=== PATIENT | male | born 1960 | race Caucasian/White ===

== ENCOUNTER 2018-01-25 22:32 | Emergency (ER) | payer BC ==
[2018-01-25] MEDS ORDERED: TETANUS & DIPHTHERIA TOX,ADULT 0.5 ML VIAL ONE (23:16)
[2018-01-25] MEDS ORDERED: LIDOCAINE 1% 20 ML MDV ONE (23:16)
[2018-01-25] MEDS ORDERED: NA CHLORIDE 0.9% 1,000 ML ONE (23:17)
[2018-01-26 01:14] LABS: Absolute Monocytes 0.7 K/uL (0.1-1.3); Absolute Neutrophil 10.3 K/uL (1.8-8.0); Basophils % 0.2 % (0-1.3); Eosinophils % 0.9 % (0-4.4); Hematocrit 34.3 % (39.6-49.0); Lymphocytes % 8.2 % (15.3-44.8); MCH 31.3 pg (27.0-35.0); MCV 88.1 fL (80-100); MPV 8.5 fL (7.6-11.3); RBC Red Blood Cell Count 3.89 M/uL (4.33-5.43)
[2018-01-26 01:17] LABS: Bicarbonate 24 mEq/L (21-31); Glucose Level 134 mg/dL (65-120); Potassium 3.6 mEq/L (3.6-5.0); Sodium Level 138 mEq/L (135-145)
[2018-01-26 01:18] LABS: BUN Blood Urea Nitrogen 13 mg/dL (6-20)
--- NOTE | 2018-01-26 01:20 | ER ---
Nurse's Notes [facility] Name: Edin Gallo Age: 57 yrs Sex: Male : 1960 Arrival Date: 01/25/2018 Time: 22:40 Bed 18 Private MD: Diagnosis: Superficial laceration of left lower leg;Contusion of chest wall Presentation: 01/25 22:50 Presenting complaint: Patient states: Pt reports he had fallen off the [place] at the [facility], hit his right side and scraped his shins. Care prior to arrival: None. Mechanism of Injury: Fall from standing position. Trauma event details: Injury occurred in the [facility], Injury occurred: [place] Injury occurred: January 25, 2018 Injury occurred at: 22:00. 22:50 Acuity: PAO 3 ea 22:50 Method Of Arrival: Wheelchair ea 23:09 Transition of care: patient was not received from another setting of care. Onset of ea symptoms was January 25, 2018. Risk Assessment: Do you want to hurt yourself or someone else? Patient reports no desire to harm self or others. Initial Sepsis Screen: Does the patient meet any 2 criteria? No. Patient's initial sepsis screen is negative. Does the patient have a suspected source of infection? No. Patient's initial sepsis screen is negative. Triage Assessment: 22:40 Respiratory: Reports shortness of breath Airway is patent Respiratory effort is even, ea unlabored, Respiratory pattern is regular, symmetrical, Breath sounds are clear bilaterally. Onset: The symptoms/episode began/occurred after fall, the patient has mild shortness of breath. 23:07 General: Appears uncomfortable. General: Behavior is calm, cooperative. ea Historical: - Allergies: 23:07 No Known Allergies; ea - Home Meds: 23:07 Lyrica Oral [Active]; Baclofen Oral [Active]; Motrin Oral [Active]; [place] Oral [Active];ea - PSHx: 23:07 c2 to c7 surgery; spinal surgery; ea - Immunization history: Last tetanus immunization: < 10 years ago. - Social history:: Smoking status: Patient uses tobacco products, pt reports he uses vape. - Ebola Screening: : No symptoms or risks identified at this time. - Family history:: not pertinent. - Hospitalizations: : No recent hospitalization is reported. Screenin:04 Abuse screen: Denies threats or abuse. Nutritional screening: No deficits noted. ea Tuberculosis screening: No symptoms or risk factors identified. Fall Risk None identified. Primary Survey: 22:50 A: Airway: patent. Breathing/Chest: Respiratory pattern: regular, Respiratory effort: ea spontaneous, unlabored, Breath sounds: clear, bilaterally. Chest inspection: symmetrical rise and fall of the chest. Circulation: Heart tones present. Skin color: pale, Skin temperature: warm. Disability Alert. Secondary Survey: 22:50 HEENT: No deficits noted. Gastrointestinal: No deficits noted. Abdomen is ea non-distended, Bowel sounds present in all quadrants. : No signs and/or symptoms were reported regarding the genitourinary system. Musculoskeletal: Circulation, motion, and sensation intact. Reports pain in right leg and left leg and right lateral posterior chest. Injury Description: Laceration sustained to right sesay and left sesay is jagged, 2.6 to 7.5 cm long, not bleeding, was sustained 30-60 minutes ago. Assessment: 22:50 General: Appears uncomfortable, Behavior is calm, cooperative, Smells of alcohol. ea General: Denies LOC. Pain: Complains of pain in right lateral posterior chest, right and left leg Pain does not radiate. Neuro: Level of Consciousness is awake, alert, obeys commands, Oriented to person, place, time, situation. Cardiovascular: Heart tones S1 S2 present Patient's skin is warm and dry. Rhythm is sinus rhythm. Respiratory: Airway is patent Respiratory effort is even, unlabored, Respiratory pattern is regular, symmetrical, Breath sounds are clear bilaterally. GI: Abdomen is non-distended, Bowel sounds present X 4 quads. : No signs and/or symptoms were reported regarding the genitourinary system. EENT: No signs and/or symptoms were reported regarding the EENT system. Derm: Skin is dry, Skin is pale, Skin temperature is warm. 23:00 Reassessment: Patient and/or family updated on plan of care and expected duration. Pain ea level reassessed. Patient is alert, oriented x 3, equal unlabored respirations, skin warm/dry/pink. 01/26 00:53 Reassessment: Patient and/or family updated on plan of care and expected duration. Pain ea level reassessed. Patient is alert, oriented x 3, equal unlabored respirations, skin warm/dry/pink. Patient states symptoms have improved. Vital Signs: 01/25 22:50 BP 96 / 55; Pulse 89; Resp 20; Temp 97.8(O); Pulse Ox 99% on R/A; Weight 70.31 kg (R); ea Height 5 ft. 9 in. (175.26 cm) (R); Pain 8/10; 23:00 BP 112 / 70; Pulse 83; Resp 18; Pulse Ox 99% ; ea 06 00:41 BP 135 / 88; Pulse 91; Resp 16; Pulse Ox 100% on R/A; mw2 01/25 22:50 Body Mass Index 22.89 (70.31 kg, 175.26 cm) ea [place] Coma Score: 01/25 22:50 Eye Response: spontaneous(4). Verbal Response: oriented(5). Motor Response: obeys ea commands(6). Total: 15. 23:00 Eye Response: spontaneous(4). Verbal Response: oriented(5). Motor Response: obeys ea commands(6). Total: 15. Trauma Score (Adult): 22:50 Eye Response: spontaneous(1); Verbal Response: oriented(1); Motor Response: obeys ea commands(2); Systolic BP: > 89 mm Hg(4); Respiratory Rate: 10 to 29 per min(4); [place] Score: 15; Trauma Score: 12 ED Course: 22:40 Patient arrived in ED. ds1 22:50 Kermit Welsh MD is Attending Physician. rn 22:50 Rox Bonilla RN is Primary Nurse. ea 22:50 Patient has correct armband on for positive identification. Bed in low position. Call ea light in reach. Side rails up X 1. 22:50 Arm band placed on right wrist. Patient placed in an exam room, on a stretcher, on ea potline monitor, on pulse oximetry. 22:59 Triage completed. ea 23:09 Patient maintains SpO2 saturation greater than 95% on room air. Thermoregulation: warm ea blanket given to patient. 23:28 Patient moved to radiology via wheelchair. kw 23:30 XRAY Chest Pa And Lat (2 Views) In Process Unspecified. EDMS 23:30 XRAY Tib Fib RIGHT In Process Unspecified. EDMS 23:30 XRAY Tib Fib LEFT In Process Unspecified. EDMS 23:30 X-ray completed. Patient tolerated procedure well. kw 23:30 Patient moved back from radiology. kw 01/26 00:20 Assist provider with laceration repair on left leg that was between 2.6 to 7.5 cm using ea sutures. Set up tray. Performed by Kermit Welsh MD Dressed with Neosporin, Patient tolerated well. 01:27 IV discontinued, intact, bleeding controlled, No redness/swelling at site. Pressure fc dressing applied. Administered Medications: 01/25 23:54 Drug: NS 0.9% 1000 ml Route: IV; Rate: 1000 ml; Site: right antecubital; ea 01/26 00:05 Drug: Tetanus-Diphtheria Toxoid Adult 0.5 ml {Sales Representative [employer]: [employer]. Exp: ad1 04/17/2020. Lot #: [id number]. } Route: IM; Site: right deltoid; 01:00 Follow up: Response: No adverse reaction ea 00:09 Drug: Lidocaine (1 %) 1 vials {Note: per dr. Welsh.} Volume: 20 ml; Route: Infiltration;ad1 Outcome: 01:20 Discharge ordered by . rn 01:27 Discharged to home ambulatory, with family. 01:27 Condition: good 01:27 Discharge instructions given to patient, family, Instructed on discharge instructions, follow up and referral plans. medication usage, wound care, Demonstrated understanding of instructions, follow-up care, medications, wound care, Prescriptions given X 1. 01:30 Patient left the ED. fc Signatures: Dispatcher [employer] EDMS Jacqui Louie RN RN Shabnam Davenport ds1 Kermit Welsh MD MD rn DelToro, Anna, RN RN ad1 Alycia Elizondo Elena, RN RN ea [place], MyKena mw2
--- NOTE | 2018-01-26 01:20 | EDPHYS ---
Physician Documentation [facility] Name: Edin Gallo Age: 57 yrs Sex: Male : 1960 Arrival Date: 01/25/2018 Time: 22:40 Bed 18 Private MD: ED Physician Kermit Welsh HPI: 01/25 23:14 This 57 yrs old Male presents to ER via Wheelchair with complaints of rn Breathing Difficulty, Fall Injury. 23:14 The patient has shortness of breath. Onset: The symptoms/episode began/occurred just rn prior to arrival. Duration: The symptoms are intermittent. The patient's shortness of breath is aggravated by palpation and breathing. Associated signs and symptoms: Pertinent positives: chest pain, Pertinent negatives: non-productive cough, productive cough, hemoptysis. Severity of symptoms: At their worst the symptoms were mild in the emergency department the symptoms are unchanged. The patient has not experienced similar symptoms in the past. [place], slipped, fell, landed on right side and legs, reports right anterior chest wall pain worse with breathing and touching, doesn't feel broken, also reports pain to both pre-tibial areas, no head injury, no LOC.. Historical: - Allergies: 23:07 No Known Allergies; ea - Home Meds: 23:07 Lyrica Oral [Active]; Baclofen Oral [Active]; Motrin Oral [Active]; [place] Oral [Active];ea - PSHx: 23:07 c2 to c7 surgery; spinal surgery; ea - Immunization history: Last tetanus immunization: < 10 years ago. - Social history:: Smoking status: Patient uses tobacco products, pt reports he uses vape. - Ebola Screening: : No symptoms or risks identified at this time. - Family history:: not pertinent. - Hospitalizations: : No recent hospitalization is reported. ROS: 23:14 Constitutional: Negative for fever, chills, and weight loss, Eyes: Negative for injury, rn pain, redness, and discharge, Neck: Negative for injury, pain, and swelling, Cardiovascular: + chest pain/trauma Respiratory: Negative for shortness of breath, cough, wheezing, and pleuritic chest pain, Abdomen/GI: Negative for abdominal pain, nausea, vomiting, diarrhea, and constipation, MS/Extremity: + bilateral pre-tibial abrasion/laceration Skin: + bilateral sesay injuries Neuro: Negative for headache, weakness, numbness, tingling, and seizure. Exam: 23:14 Constitutional: This is a well developed, well nourished patient who is awake, alert, rn and in no acute distress. Head/Face: Normocephalic, atraumatic. Eyes: Pupils equal round and reactive to light, extra-ocular motions intact. Lids and lashes normal. Conjunctiva and sclera are non-icteric and not injected. Cornea within normal limits. Periorbital areas with no swelling, redness, or edema. Neck: Trachea midline, no thyromegaly or masses palpated, and no cervical lymphadenopathy. Supple, full range of motion without nuchal rigidity, or vertebral point tenderness. No Meningismus. Chest/axilla: + contusion/abrasion under right nipple, no bony tenderness or crepitus Cardiovascular: Regular rate and rhythm with a normal S1 and S2. No gallops, murmurs, or rubs. Normal PMI, no JVD. No pulse deficits. Respiratory: Lungs have equal breath sounds bilaterally, clear to auscultation and percussion. No rales, rhonchi or wheezes noted. No increased work of breathing, no retractions or nasal flaring. Abdomen/GI: Soft, non-tender, with normal bowel sounds. No distension or tympany. No guarding or rebound. No evidence of tenderness throughout. MS/ Extremity: Pulses equal, no cyanosis. Neurovascular intact. Full, normal range of motion. Equal circumference. 3 cm superficial laceration left pre-tibial region. + abrasion to left pre-tibial region. No deformities. Neuro: Awake and alert, GCS 15, oriented to person, place, time, and situation. Cranial nerves II-XII grossly intact. Motor strength 5/5 in all extremities. Sensory grossly intact. Vital Signs: 22:50 BP 96 / 55; Pulse 89; Resp 20; Temp 97.8(O); Pulse Ox 99% on R/A; Weight 70.31 kg (R); ea Height 5 ft. 9 in. (175.26 cm) (R); Pain 8/10; 23:00 BP 112 / 70; Pulse 83; Resp 18; Pulse Ox 99% ; ea 01/26 00:41 BP 135 / 88; Pulse 91; Resp 16; Pulse Ox 100% on R/A; mw2 01/25 22:50 Body Mass Index 22.89 (70.31 kg, 175.26 cm) ea [place] Coma Score: 06 22:50 Eye Response: spontaneous(4). Verbal Response: oriented(5). Motor Response: obeys ea commands(6). Total: 15. 23:00 Eye Response: spontaneous(4). Verbal Response: oriented(5). Motor Response: obeys ea commands(6). Total: 15. Trauma Score (Adult): 22:50 Eye Response: spontaneous(1); Verbal Response: oriented(1); Motor Response: obeys ea commands(2); Systolic BP: > 89 mm Hg(4); Respiratory Rate: 10 to 29 per min(4); Rajesh Score: 15; Trauma Score: 12 Laceration: 01/26 00:17 Wound Repair of 3cm ( 1.2in ) subcutaneous laceration to left sesay. Distal rn neuro/vascular/tendon intact. Anesthesia: Wound infiltrated with 3 mls of 1% lidocaine. Wound prep: Extensive cleansing by nurse, Wound irrigation by nurse, Wound margin revised minimally, Wound debrided minimally. Skin closed with 4 3-0 Prolene using interrupted sutures and sterile technique. Dressed with Kerlix. Patient tolerated well. MDM: 01/25 22:50 Patient medically screened. rn 01/26 00:18 Differential diagnosis: rib contusion, rib fracture, leg fracture, laceration. Data rn reviewed: vital signs, nurses notes, lab test result(s), radiologic studies, plain films. 01:18 Counseling: I had a detailed discussion with the patient and/or guardian regarding: the rn historical points, exam findings, and any diagnostic results supporting the discharge/admit diagnosis, lab results, radiology results, the need for outpatient follow up, to return to the emergency department if symptoms worsen or persist or if there are any questions or concerns that arise at home. Special discussion: I discussed with the patient/guardian in detail that at this point there is no indication for admission to the hospital. It is understood, however, that if the symptoms persist or worsen the patient needs to return immediately for re-evaluation. 01/25 23:03 Order name: CBC with Diff; Complete Time: 01:18 rn 01/25 23:03 Order name: Basic Metabolic Panel rn 01/25 23:03 Order name: XRAY Chest Pa And Lat (2 Views) rn 01/25 23:03 Order name: XRAY Tib Fib RIGHT rn 01/25 23:03 Order name: XRAY Tib Fib LEFT rn 01/25 23:03 Order name: IV Start; Complete Time: 00:06 rn 01/25 23:07 Order name: Wound Care; Complete Time: 00:06 rn Administered Medications: 01/25 23:54 Drug: NS 0.9% 1000 ml Route: IV; Rate: 1000 ml; Site: right antecubital; ea 01/26 00:05 Drug: Tetanus-Diphtheria Toxoid Adult 0.5 ml {[employer]: [employer]. Exp: ad1 04/17/2020. Lot #: [id number]. } Route: IM; Site: right deltoid; 01:00 Follow up: Response: No adverse reaction ea :09 Drug: Lidocaine (1 %) 1 vials {Note: per dr. Welsh.} Volume: 20 ml; Route: Infiltration;ad1 Disposition: 01/26/18 01:20 Discharged to Home. Impression: Superficial laceration of left lower leg, Contusion of chest wall. - Condition is Stable. - Discharge Instructions: Chest Contusion, Laceration Care, Adult. - Prescriptions for Doxycycline Monohydrate 100 mg Oral Tablet - take 1 tablet by ORAL route every 12 hours for 10 days; 20 tablet. - Medication Reconciliation Form, Thank You Letter, Antibiotic Education, Prescription Opioid Use form. - Follow up: Private Physician; When: 14 days; Reason: Staple/Suture removal. - Problem is new. - Symptoms have improved. Signatures: Dispatcher [employer] EDNE Jacqui Louie RN RN Kermit Welsh MD MD rn DelToro, Anna, RN RN ad1 Rox Bonilla RN RN ea Corrections: (The following items were deleted from the chart) 01:30 01:20 01/26/2018 01:20 Discharged to Home. Impression: Superficial laceration of left fc lower leg; Contusion of chest wall. Condition is Stable. Forms are Medication Reconciliation Form, Thank You Letter, Antibiotic Education, Prescription Opioid Use. Follow up: Private Physician; When: 14 days; Reason: Staple/Suture removal. Problem is new. Symptoms have improved. rn
--- NOTE | 2018-01-26 09:46 | RAD REPORT ---
EXAM DESCRIPTION: Kevin Sarmiento Left01/25/2018 11:37 pm CLINICAL HISTORY: Left leg pain status post injury FINDINGS: No fracture is seen
--- NOTE | 2018-01-26 09:48 | RAD REPORT ---
EXAM DESCRIPTION: RAD - Tib Fib Right - 01/25/2018 11:31 pm CLINICAL HISTORY: Right leg pain status post injury FINDINGS: No fracture is seen
--- NOTE | 2018-01-26 10:17 | RAD REPORT ---
EXAM DESCRIPTION: Richard Casas (2 Views)01/25/2018 11:31 pm CLINICAL HISTORY: Chest pain COMPARISON: none FINDINGS: The lungs appear clear of acute infiltrate. The heart is normal size IMPRESSION: No acute abnormalities displayed
== END 2018-01-26 01:30 | disposition home or self-care (01) ==
LOC: ER 22:32
PROC: 0JQP0ZZ Repair Left Lower Leg Subcutaneous Tissue and Fascia, Open Approach (ICD-10-PCS; principal; 2018-01-26)
DX: S81.812A Laceration without foreign body, left lower leg, initial encounter (principal); S20.219A Contusion of unspecified front wall of thorax, initial encounter; W18.39XA Other fall on same level, initial encounter; Y93.89 Activity, other specified; Y92.89 Other specified places as the place of occurrence of the external cause; Z23 Encounter for immunization; Z72.0 Tobacco use
CPT/HCPCS: 36415; 71046; 80048; 85025; 90714; 99285; J7030